=== PATIENT | male | born 1940 | race Caucasian/White ===

== ENCOUNTER 2017-08-11 11:49 | Emergency (ER) | payer MEDICARE ==
[2017-08-11 11:57] VITALS: RESP 18; TEMP 97.9
--- NOTE | 2017-08-11 12:39 | ED PDOC ---
Arrival/HPI - General Chief Complaint: Shortness Of Breath Time Seen by Provider: 08/11/17 12:17 Historian: Patient - History of Present Illness Narrative History of Present Illness (Text): 08/11/17 12:34 A 77 year old male, whose past medical history includes hypertension and hypothyroidism, presents to the emergency department complaining of generalized weakness for more than a week. Patient notes associated shortness of breath and dry cough. He reports his symptoms began while in the [facility] and states he recently traveled back 1 week ago to get checked out. Patient notes urinary frequency but denies any fever, chills, nausea, vomiting, abdominal pain, chest pain, headache, dizziness or any other complaints. PMD: None Time/Duration: > week Symptom Course: Unchanged Context: Other Past Medical History - Provider Review Nursing Documentation Reviewed: Yes - Travel History If Yes, travel location?: [facility] - Infectious Disease Hx of Infectious Diseases: None - Cardiac Hx Hypertension: Yes - Endocrine/Metabolic Hx Diabetes Mellitus Type 2: Yes Hx Hypothyroidism: Yes - Psychiatric Hx Substance Use: No - Surgical History Hx Cataract Extraction: Yes Family/Social History - Physician Review Nursing Documentation Reviewed: Yes Family/Social History: No Known Family HX Smoking Status: Former Smoker Hx Alcohol Use: No Hx Substance Use: No Allergies/Home Meds Allergies/Adverse Reactions: Allergies No Known Allergies Allergy (Verified 08/11/17 11:57) Home Medications: Home Meds Medication Instructions Recorded Confirmed Atenolol [Tenormin] 100 mg PO DAILY 08/11/17 08/11/17 Fosinopril Sodium [Fosinopril 40 mg PO DAILY 08/11/17 08/11/17 Sodium] Levothyroxine [Synthroid] 100 mcg PO DAILY 08/11/17 08/11/17 MetFORMIN [glucoPHAGE] 1,000 mg PO BID 08/11/17 08/11/17 Simvastatin [Zocor] 20 mg PO DAILY 08/11/17 08/11/17 Tamsulosin [Flomax] 0.4 mg PO DAILY 08/11/17 08/11/17 amLODIPine [Norvasc] 10 mg PO DAILY 08/11/17 08/11/17 Review of Systems - Physician Review All systems were reviewed & negative as marked: Yes - Review of Systems Constitutional: Other (Generalized weakness). absent: Fevers, Night Sweats Respiratory: SOB, Cough. absent: Sputum Cardiovascular: absent: Chest Pain Gastrointestinal: absent: Abdominal Pain, Nausea, Vomiting Genitourinary Male: Frequency Neurological: absent: Headache, Dizziness Physical Exam - Physical Exam Narrative Physical Exam (Text): Constitutional: No acute distress. Head: Normocephalic. Atraumatic. Eyes: PERRL. ENT: Moist mucous membranes. Neck: Supple. Cardiovascular: Bradycardic Chest: No tenderness. Respiratory: Clear to auscultation bilaterally. GI: Soft. Nontender. Nondistended. Back: No CVA tenderness. Musculoskeletal: No tenderness or swelling of extremities. Skin: No rash. Neurologic: Alert, no focal deficit. Vital Signs Reviewed: Yes Vital Signs Temp Pulse Resp BP Pulse Ox 08/11/17 11:51 97.9 F 49 L 18 134/77 97 Temperature: Afebrile Blood Pressure: Normal Pulse: Bradycardic Respiratory Rate: Normal Appearance: Positive for: Well-Appearing, Non-Toxic, Comfortable Pain Distress: None Mental Status: Positive for: Alert and Oriented X 3 Medical Decision Making ED Course and Treatment: 08/11/17 12:34 EKG shows sinus bradycardia at [address]-segment elevations. Interpreted by me. Report Date : 08/11/2017 13:01:31 Procedure: Chest xray Dictator : Deny Barrera MD IMPRESSION: No active disease. Report Date : 08/11/2017 15:19:28 PROCEDURE: CT Chest with contrast (Pulmonary Angiogram) Dictator : Deny Barrera MD IMPRESSION: Unremarkable CT pulmonary angiogram. No pulmonary embolus. No findings of emergent significance but informed patient that he needs to follow up with primary care for further evaluation and management. Patient notes his HR is typically 60 or so and currently at bedside, it is 50. He states he was on Atenolol for years but the last time he got it, it was in [place] without a prescription and he was given Atenolol 100, which is a higher dosage than he was prescribed in the past. BP is being well controlled, will give lower dose for few weeks, f/u PMD, return to ED for worsening pain, fever, dyspnea, vomiting, or any other problem. - Lab Interpretations Lab Results: 08/11/17 13:00 08/11/17 13:00 Lab Results 08/11/17 13:21: Blood Type A POSITIVE, Antibody Screen Negative, BBK History Checked No verified bt 08/11/17 13:00: TSH 3rd Generation 20.80 H 08/11/17 13:00: Sodium 140, Potassium 3.9, Chloride 102, Carbon Dioxide 27, Anion Gap 15, BUN 16, Creatinine 0.9, Est GFR ( Amer) > 60, Est GFR (Non- Af Amer) > 60, Random Glucose 112 H, Calcium 10.0, Total Bilirubin 0.4, AST 33, ALT 44, Alkaline Phosphatase 54, Total Creatine Kinase 55, Troponin I < 0.01, NT -Pro-B Natriuret Pep 205, Total Protein 7.5, Albumin 4.2, Globulin 3.2, Albumin/ Globulin Ratio 1.3 08/11/17 13:00: Urine Color Yellow, Urine Appearance Clear, Urine pH 6.0, Ur Specific [place] >= 1.030, Urine Protein Negative, Urine Glucose (UA) Negative, Urine Ketones Negative, Urine Blood Negative, Urine Nitrate Negative, Urine Bilirubin Negative, Urine Urobilinogen 0.2, Ur Leukocyte Esterase Trace H, Urine RBC Negative, Urine WBC 0 - 2, Ur Epithelial Cells 0 - 2, Calcium Oxalate Crystal Few, Urine Bacteria Few 08/11/17 13:00: PT 10.3, INR 0.90 L, APTT 30.2, D-Dimer, Quantitative 466 H 08/11/17 13:00: WBC 6.3, RBC 4.40, Hgb 13.3 L, Hct 40.5 L, MCV 92.0, MCH 30.2, MCHC 32.8, RDW 13.8, Plt Count 225, MPV 10.5, Gran % 38.1 L, Lymph % (Auto) 37.6 H, [place] % (Auto) 8.6 H, Eos % (Auto) 14.9 H, Baso % (Auto) 0.8, Gran # 2.40 , Lymph # (Auto) 2.4, [place] # (Auto) 0.5, Eos # (Auto) 0.9 H, Baso # (Auto) 0.05 - RAD Interpretation Radiology Orders: 08/11/17 12:34 CHEST PORTABLE [RAD] Stat 08/11/17 13:35 ANGIO CHEST PE PROTOCOL [CT] Stat DUPLEX LOWER EXTRM VEIN BILAT [US] Stat - Scribe Statement The provider has reviewed the documentation as recorded by the Scribe Siobhan Crain Provider Scribe Attestation: All medical record entries made by the Scribe were at my direction and personally dictated by me. I have reviewed the chart and agree that the record accurately reflects my personal performance of the history, physical exam, medical decision making, and the department course for this patient. I have also personally directed, reviewed, and agree with the discharge instructions and disposition. Disposition/Present on Arrival - Present on Arrival Any Indicators Present on Arrival: No History of DVT/PE: No History of Uncontrolled Diabetes: No Urinary Catheter: No History of Decub. Ulcer: No History Surgical Site Infection Following: None - Disposition Have Diagnosis and Disposition been Completed?: Yes Diagnosis: General weakness Disposition: HOME/ ROUTINE Disposition Time: 15:25 Patient Plan: Discharge Condition: STABLE Discharge Instructions (ExitCare): Generalized Weakness (DC) Prescriptions: Atenolol 50 mg PO DAILY #14 tablet Azithromycin [Zithromax] 2 tab PO DAILY #6 tab Referrals: Kojo Elizalde MD [Medical Doctor] - Follow up with primary Forms: [employer] (Setswana)
--- NOTE | 2017-08-11 13:03 | RAD ---
HISTORY: shortness of breath COMPARISON: No prior. FINDINGS: LUNGS: No active pulmonary disease. PLEURA: No significant pleural effusion identified, no pneumothorax apparent. CARDIOVASCULAR: Cardiomegaly. No evidence of acute, significant cardiovascular disease. OSSEOUS STRUCTURES: No significant abnormalities. VISUALIZED UPPER ABDOMEN: Normal. OTHER FINDINGS: None. IMPRESSION: No active disease.
[2017-08-11 13:31] LABS: BASO # 0.05 K/mm3 (0.0-2.0); BASO % 0.8 % (0.0-3.0); EOS # 0.9 (0.0-0.7); EOS % 14.9 % (1.5-5.0); GRAN # 2.4 (1.4-6.5); GRAN % 38.1 % (50.0-68.0); HEMOGLOBIN 13.3 g/dL (14.0-18.0); LYMPH # 2.4 (1.2-3.4); LYMPH % 37.6 % (22.0-35.0); MEAN CORPUSCULAR HEMOGLOBIN 30.2 pg (25.0-35.0); MEAN CORPUSCULAR HGB CONC 32.8 g/dl (31.0-37.0); MEAN PLATELET VOLUME 10.5 fl (7.0-11.0); MONO # 0.5 (0.1-0.6); MONO % 8.6 % (1.0-6.0); RBC 4.4 10^6/uL (3.5-6.1); RED CELL DISTRIBUTION WIDTH 13.8 % (11.5-14.5); URINE APPEARANCE CLEAR (CLEAR); URINE BILIRUBIN NEGATIVE (NEGATIVE); URINE BLOOD NEGATIVE (NEGATIVE); URINE COLOR YELLOW (YELLOW); URINE GLUCOSE (UA) NEGATIVE (NEGATIVE); URINE LEUKOCYTE ESTERASE TRACE Leu/uL (NEGATIVE); URINE PROTEIN NEGATIVE mg/dL (<30 mg/dL); URINE UROBILINOGEN 0.2 E.U./dL (<1 E.U./dL); WHITE BLOOD COUNT 6.3 10^3/ul (4.5-11.0)
[2017-08-11 13:34] LABS: INR 0.9 (0.93-1.08); PARTIAL THROMBOPLASTIN TIME 30.2 Seconds (25.1-36.5); PROTHROMBIN TIME 10.3 SECONDS (9.4-12.5)
[2017-08-11 13:47] LABS: URINE BACTERIA FEW (NEG); URINE CALCIUM OXALATE CRYSTALS FEW /hpf; URINE EPITHELIAL CELLS 0 - 2 /hpf (0-5); URINE RBC NEGATIVE /hpf (0-2); URINE WBC 0 - 2 /hpf (0-6)
[2017-08-11 13:50] LABS: B-TYPE NATRIURETIC PEPTIDE 205 pg/mL (0-450); TROPONIN I < 0.01 ng/mL
[2017-08-11 14:09] LABS: ALB/GLOB RATIO 1.3 (1.1-1.8); ALBUMIN 4.2 g/dL (3.0-4.8); ALT/SGPT 44 U/L (7-56); AST/SGOT 33 U/L (17-59); BLOOD UREA NITROGEN 16 mg/dL (7-21); GFR AFRICAN-AMERICAN > 60; GFR NON-AFRICAN AMERICAN > 60
[2017-08-11] MEDS ORDERED: Iohexol 350 MG/100 ML VIAL ONE (14:31)
--- NOTE | 2017-08-11 15:20 | CT ---
PROCEDURE: CT Chest with contrast (Pulmonary Angiogram) HISTORY: dyspnea, elevated d dimer, recent flight COMPARISON: None available. TECHNIQUE: Axial computed tomography images were obtained of the chest in the pulmonary arterial phase of enhancement. Coronal and sagittal reformatted images were created and reviewed. Intravenous contrast dose: 100 cc Omnipaque 350. Mean Hounsfield unit values in the main pulmonary artery: 375.41 Radiation dose: Total exam DLP = 433.71 mGy-cm. This CT exam was performed using one or more of the following dose reduction techniques: Automated exposure control, adjustment of the mA and/or kV according to patient size, and/or use of iterative reconstruction technique. FINDINGS: PULMONARY ARTERIES: Dilated main pulmonary artery consistent with pulmonary arterial hypertension. No pulmonary embolism. AORTA: No acute findings. No thoracic aortic aneurysm. LUNGS: Twenty atelectasis/subsegmental infiltrates left lower lobe. PLEURAL SPACES: Unremarkable. No effusion or pneuomothorax. HEART: Unremarkable. No cardiomegaly. No significant pericardial effusion. LYMPH NODES: No lymphadenopathy. BONES, CHEST WALL: Unremarkable. No fracture or destructive lesion OTHER FINDINGS: Unremarkable. IMPRESSION: Unremarkable CT pulmonary angiogram. No pulmonary embolus.
[2017-08-11 16:29] VITALS: BP 132/77; PULSE 50
[2017-08-11 16:39] VITALS: O2SAT 99
--- NOTE | 2017-08-11 16:41 | CARD ---
APPROVED REPORT EKG Measurement Heart [id number] <Conclusion> Marked sinus bradycardia Abnormal ECG
--- NOTE | 2017-08-12 08:47 | US ---
HISTORY: Leg pain and swelling. Evaluate for DVT PHYSICIAN(S): Brent Hollingsworth MD. TECHNIQUE: Duplex sonography and color-flow Doppler with graded compression were used to evaluate the deep venous systems of both lower extremities. The exam is somewhat limited by edema. The tibial veins are not well seen FINDINGS: The visualized deep venous systems of both lower extremities are sonographically normal and compressible. Normal wave forms and augmentation are seen. There is no sonographic evidence for deep venous thrombosis in the visualized segments of both lower extremities. IMPRESSION: No sonographic evidence for deep venous thrombosis in the visualized segments of both lower extremities.
== END 2017-08-11 16:43 | disposition home or self-care (01) ==
LOC: ED 11:49 → MERGE 11:49 → ED 16:43
DX: R53.1 Weakness (principal); I10 Essential (primary) hypertension; E11.9 Type 2 diabetes mellitus without complications; E03.9 Hypothyroidism, unspecified; Z87.891 Personal history of nicotine dependence
CPT/HCPCS: 71045; 71275; 80053; 81001; 82550; 83880; 84443; 84484; 85025; 85378; 85610; 85730; 86850; 86900; 87086; 93005; 93970; 99284; Q9967